=== PATIENT | female | born 1935 | race Caucasian/White ===

== ENCOUNTER 2020-10-10 11:23 | Inpatient (IN) | payer MEDICARE ==
[~2020-10-10] VITALS: Ht 162.6 cm; Wt 43.5 kg
[2020-10-10] MEDS ORDERED: FURO-152 PO (11:54)
[2020-10-10] MEDS ORDERED: BUSP5TAB3 PO (11:54)
[2020-10-10] MEDS ORDERED: TRAV5DRO LEFTEYE (11:54)
[2020-10-10] MEDS ORDERED: PREG50CA PO (11:54)
[2020-10-10] MEDS ORDERED: [UNRECOGNIZED DRUG - OTHER] (11:54)
[2020-10-10] MEDS ORDERED: BIOT5000 PO (11:54)
[2020-10-10] MEDS ORDERED: SOLI5TAB2 PO (11:54)
[2020-10-10] MEDS ORDERED: PRAV20TA4 PO (11:54)
[2020-10-10] MEDS ORDERED: OMEP40CA13 PO (11:54)
[2020-10-10] MEDS ORDERED: ASPI81TA31 PO (11:54)
[2020-10-10] MEDS ORDERED: TURM1CAP2 PO (11:54)
[2020-10-10] MEDS ORDERED: MAG355OR18 PO (11:54)
[2020-10-10] MEDS ORDERED: SERT50TA PO (11:54)
[2020-10-10] MEDS ORDERED: CYAN200017 PO (11:54)
[2020-10-10] MEDS ORDERED: BETA1TAB19 PO (11:54)
[2020-10-10] MEDS ORDERED: SIME125C PO (11:54)
[2020-10-10] MEDS ORDERED: TYLENOL PM (11:54)
[2020-10-10] MEDS ORDERED: SLOW-MAG (11:54)
[2020-10-10] MEDS ORDERED: CHOL10005 PO (11:54)
[2020-10-10] MEDS ORDERED: L. R1CAP4 PO (11:54)
[2020-10-10 12:12] LABS: HEMATOCRIT 30.4 % (31.2-41.9); HEMOGLOBIN 10.4 g/dL (10.9-14.3); LYMPHOCYTES # (AUTO) 0.3 K/uL (20.0-40.0); LYMPHOCYTES % (AUTO) 18.7 % (20.5-51.5); MEAN CORPUSCULAR HGB CONC 34 g/dL (32.3-35.6); MEAN CORPUSCULAR VOLUME 108.6 fL (75.5-95.3); MONOCYTES # (AUTO) 0.1 K/uL (2.0-10.0); NEUTROPHILS % (AUTO) 70.3 % (38.5-71.5); PLATELET COUNT (AUTO) 51 K/uL (179-408)
--- NOTE | 2020-10-10 12:13 | NUR ---
lunch provdied for pt. pt son at bedside.
[2020-10-10 12:31] LABS: ACETAMINOPHEN < 2.0 ug/mL (10-30); ALANINE AMINOTRANSFERASE 30 U/L (14-59); ALKALINE PHOSPHATASE 74 U/L (50-136); ASPARTATE AMINOTRANSFERASE 29 U/L (15-37); BILIRUBIN,DIRECT 0.2 mg/dL (0.0-0.2); BILIRUBIN,TOTAL 0.5 mg/dL (0.2-1.0); CARBON DIOXIDE 29 mmol/L (21-32); CHLORIDE 108 mmol/L (98-107); CREATININE 0.8 mg/dL (0.6-1.3); GLUCOSE 112 mg/dL (74-106); POTASSIUM 3.2 mmol/L (3.5-5.1); TOTAL PROTEIN, SERUM 6.7 g/dL (6.4-8.2); UREA NITROGEN, BLOOD 20 mg/dL (7-18)
[2020-10-10 12:52] LABS: ETHANOL < 3 MG/DL (0-0)
[2020-10-10 12:54] LABS: WHITE BLOOD COUNT (AUTO) 1.4 K/uL (3.8-11.8)
[2020-10-10] MEDS ORDERED: POTASSIUM CHLORIDE 20 MEQ TAB.PRT.SR PO ONE (13:00)
--- NOTE | 2020-10-10 13:00 | NUR ---
pt medically cleared by er .called Tremaine Salvador for psych eval.
[2020-10-10] MEDS ORDERED: POTASSIUM CHLORIDE 20 MEQ TAB.PRT.SR ONE (13:10)
[2020-10-10 13:48] LABS: *BILIRUBIN,URIN NEGATIVE (NEGATIVE); *CLARITY,URINE CLEAR (CLEAR); *COLOR,URINE YELLOW (YELLOW); *KETONES,URINE NEGATIVE (NEGATIVE); LEUKOCYTE ESTERASE ,URINE NEGATIVE (NEGATIVE); NITRITE, URINE NEGATIVE (NEGATIVE); PH,URINE 6.5 (5.0-8.0); UGLUCOSE NEGATIVE (NEGATIVE)
[2020-10-10 13:57] LABS: *BLOOD, URINE TRACE (NEGATIVE)
[2020-10-10 14:02] LABS: *AMPHETAMINE, URINE NEGATIVE (NEGATIVE); *CANNABINOID, URINE NEGATIVE (NEGATIVE); *COCCAINE, URINE NEGATIVE (NEGATIVE); *OPIATE, URINE NEGATIVE (NEGATIVE); *PHENCYCLIDINE SCREEN,URINE NEGATIVE (NEGATIVE)
[2020-10-10] MEDS ORDERED: MAGNESIUM HYDROXIDE 30 ML LIQUID UDC PO PRN ×2 (14:45→23:45)
[2020-10-10] MEDS ORDERED: MAG HYDROX/AL HYDROX/SIMETH 30 ML LIQUID UDC PO PRN (14:45)
[2020-10-10] MEDS ORDERED: ACETAMINOPHEN 325 MG TABLET PO PRN ×2 (14:45→21:30)
[2020-10-10] MEDS ORDERED: LORAZEPAM 0.5 MG TABLET PO PRN ×2 (14:45→15:45)
[2020-10-10] MEDS ORDERED: TEMAZEPAM 7.5 MG CAPSULE PO PRN (14:45)
--- NOTE | 2020-10-10 14:50 | NUR ---
trnasfered pt to mhu in stable condition.
[2020-10-10 15:00] VITALS: BP 147/75
--- NOTE | 2020-10-10 17:20 | NUR ---
Clinical Social Work Note Pt was sent by ED to MHU but patient has WBC of 1.4 and infiltrate and so patient will be admitted to telemetry unit under Dr Zhou's care. Patient is not on a 5150. Tremaine Newsome [employer] SUPERINTENDENT rescinded his 5150 as patient's behavior could well be attributed to her medical condition. Patient presents as anxious and repeats herself due to her anxiety and probable cognitive deficit. This is within his purview. Dr Mancera will consult and follow this patient on the medical floor and is aware of her admission to telemetry. If patient stabilizes medically, she can be evaluated for MHU admission but not at this time. Her mental status could well be impacted by her medical condition. Jennifer WASHBURN notified family of her transfer. Dx: Pneumonia. NO 5150 and no sitter.
[2020-10-10 19:13] LABS: BACTERIA,URINE NONE SEEN /HPF (NONE SEEN); MUCUS,URINE FEW /LPF (0-FEW); SQUAMOUS EPITHELIAL CELL,UR FEW /HPF (NONE SEEN); WBC,URINE 0-3 /HPF (0-3)
[2020-10-10] MEDS: CEFTRIAXONE 1 G in IV DEXTROSE 5% 50 ML IV SCH (20:28)
[2020-10-10 21:23] VITALS: BP 141/73
[2020-10-10] MEDS ORDERED: ONDANSETRON 4 MG/2 ML VIAL IV PRN (21:30)
[2020-10-10] MEDS: AZITHROMYCIN IV 500 MG in IV DEXTROSE 5% 250 ML IV SCH (22:12)
[2020-10-10] MEDS: MAG HYDROX/AL HYDROX/SIMETH 30 ML LIQUID UDC PO PRN (23:07)
[2020-10-10 23:58] VITALS: BP_SYST 131; BP_SYST 149; BP_DIAS 78
[2020-10-11] MEDS: TEMAZEPAM 7.5 MG CAPSULE PO PRN (00:07)
[2020-10-11 00:13] LABS: EOSINOPHILS % (MANUAL) 3 % (0-8); LYMPHOCYTES % (MANUAL) 19 % (20-40); MONOCYTES % (MANUAL) 7 % (2-10); NEUTROPHILS % (MANUAL) 71 % (42-75)
[2020-10-11 05:19] VITALS: BP 114/63
[2020-10-11] MEDS: PANTOPRAZOLE SODIUM 40 MG TABLET.DR PO SCH (06:16)
[2020-10-11 06:39] LABS: THYROID STIMULATING HORMONE 1.506 mIU/mL (0.358-3.740)
[2020-10-11 06:42] LABS: BILIRUBIN,TOTAL 0.4 mg/dL (0.2-1.0); CREATININE 0.7 mg/dL (0.6-1.3); POTASSIUM 3.3 mmol/L (3.5-5.1); TOTAL PROTEIN, SERUM 6.2 g/dL (6.4-8.2)
[2020-10-11 06:59] LABS: PHOSPHOROUS 2.6 mg/dL (2.5-4.9)
[2020-10-11 07:57] VITALS: BP 133/55
[2020-10-11] MEDS: MAG HYDROX/AL HYDROX/SIMETH 30 ML LIQUID UDC PO PRN ×2 (08:38→14:12)
[2020-10-11] MEDS: ASPIRIN 81 MG TAB.CHEW PO SCH (08:40)
[2020-10-11] MEDS: OXYBUTYNIN CHLORIDE 5 MG TABLET PO SCH ×2 (08:42→17:50)
[2020-10-11] MEDS: BETA CAROTENE/VIT C & E/MIN TABLET PO SCH ×2 (08:42→17:50)
[2020-10-11] MEDS: FUROSEMIDE 20 MG TABLET PO SCH (08:45)
[2020-10-11] MEDS ORDERED: SOLIFENACIN SUCCINATE 5 MG TABEC PO SCH (09:00)
[2020-10-11] MEDS ORDERED: POTASSIUM CHLORIDE 20 MEQ TAB.PRT.SR PO SCH ×2 (09:15→13:45)
[2020-10-11 11:29] VITALS: BP 135/69
[2020-10-11] MEDS ORDERED: IV NORMAL SALINE 250 ML IV ONE (12:18)
[2020-10-11] MEDS ORDERED: IOHEXOL 300MG/ML 100 ML INFUS..BTL ONE (12:18)
[2020-10-11] MEDS ORDERED: SWABABLE VALVE TRANSFER SET EA MC ONE (12:18)
[2020-10-11] MEDS: SERTRALINE HCL 50 MG TABLET PO SCH (13:59)
[2020-10-11 15:13] VITALS: BP 160/68
[2020-10-11] MEDS ORDERED: BISACODYL 10 MG SUPP.RECT RC PRN (16:15)
--- NOTE | 2020-10-11 17:02 | NUR ---
Pt AAOx4, anxious and forgetful at times. Denies pain/discomfort. VSS. SR on monitor. RA, no SOB w/ spo2 >92%. Ambulatory and steady. Continent x2, BRP. Complained of indigestion, Maalox PRN adminstered x2 w/ good relief. Dulcolax suppository PRN ordered for constipation. All needs attended to. Plan: AM labs, IV abx, hemat consult
[2020-10-11] MEDS: CEFTRIAXONE 1 G in IV DEXTROSE 5% 50 ML IV SCH (17:50)
[2020-10-11 20:00] VITALS: BP 150/74
[2020-10-11] MEDS: PREGABALIN 50 MG CAPSULE PO SCH (20:51)
[2020-10-11] MEDS: AZITHROMYCIN IV 500 MG in IV DEXTROSE 5% 250 ML IV SCH (20:51)
[2020-10-11] MEDS: MIRTAZAPINE 15 MG TABLET PO SCH (20:52)
[2020-10-11] MEDS: ATORVASTATIN 10 MG TABLET PO SCH (20:52)
[2020-10-11] MEDS: LORAZEPAM 0.5 MG TABLET PO PRN (20:52)
[2020-10-12] VITALS: BP 136/100
[2020-10-12] MEDS: TEMAZEPAM 7.5 MG CAPSULE PO PRN (00:03)
[2020-10-12 04:00] VITALS: BP 136/76
[2020-10-12 07:59] LABS: CREATININE 0.7 mg/dL (0.6-1.3); POTASSIUM 3.7 mmol/L (3.5-5.1)
[2020-10-12 08:07] VITALS: BP 147/80
[2020-10-12] MEDS: BETA CAROTENE/VIT C & E/MIN TABLET PO SCH ×2 (08:50→16:48)
[2020-10-12] MEDS: ASPIRIN 81 MG TAB.CHEW PO SCH (08:50)
[2020-10-12] MEDS: OXYBUTYNIN CHLORIDE 5 MG TABLET PO SCH ×2 (08:51→16:48)
[2020-10-12] MEDS: FUROSEMIDE 20 MG TABLET PO SCH (08:51)
[2020-10-12] MEDS: PANTOPRAZOLE SODIUM 40 MG TABLET.DR PO SCH (08:53)
--- NOTE | 2020-10-12 09:07 | NUR ---
PATIENT IS FROM THE [facility] SO CALLED THE MRI LEFT A MESSAGE SINCE PATIENT IS SUPPOSED TO BE NPO NEEDED TO COORDINATE TIMING OF THE MRI SO TO KNOW WHEN HER NPO STATUS WILL BEGIN.PATIENT AWARE THAT SHE WILL EAT BREAKFAST FOR NOW BUT MOST LIKELY WILL HAVE EARLY LUNCH WHILE AWAITING FOR THE MRI SCHEDULE AND SHE EXPRESSED UNDERSTANDING.
[2020-10-12 09:42] LABS: *RHEUMATOID FACTOR SCREEN NEGATIVE (NEGATIVE)
--- NOTE | 2020-10-12 11:30 | NUR ---
CALL RECEIVED FROM BENJA AT THE MRI STATED WILL BE ABLE TO ACCOMODATE PATIENT AT ABOUT 1700 JUST HAVE THE PATIENT GET TO [facility] BY 1700 TODAY AND PATIENT HAS TO BE NPO ABOUT 4 HOURS SO KITCHEN CALL AND PATIENT WILL RECEIVE EARLY LUNCH WILL FINISH EATING BY 1230 AND WILL BE PICKED UP BY 1630 PATIENT AWARE ALSO HIS SON MARIANNE AWARE OF PLANS FOR MRI THIS AFTERNOON STATED WILL APPRECIATED A CALL FROM DR JAIMES WILL NOTIFY HIM.SHE ALSO FILLED UP THE MRI QUESTIONARE AND SIGNED.
[2020-10-12] MEDS: SERTRALINE HCL 50 MG TABLET PO SCH (12:34)
[2020-10-12 15:54] VITALS: BP 161/77
--- NOTE | 2020-10-12 16:54 | NUR ---
AMBULANCE HERE PATIENT PICKED UP FOR MRI ORDERED.
--- NOTE | 2020-10-12 18:33 | NUR ---
PATIENT RETURNED FROM THE MRI ORDERED IN SATISFACTORY CONDITION.
[2020-10-12 20:00] VITALS: BP 153/79
--- NOTE | 2020-10-12 20:00 | NUR ---
AWAKE,ALERT ANXIOUS,REPEATING HERSELF ABOUT GOING TO SLEEP.UP TO THE BATHROOM SEVERAL TIMES ,BRUSH HER TEETH,VOIDED CLEAN HER FACE ETC. AT 2200 NITE PILLS GIVEN MADE COMFORTABLY.COMPLAINT OF INDIGESTION MAALOX GIVEN.
[2020-10-12] MEDS: CEFTRIAXONE 1 G in IV DEXTROSE 5% 50 ML IV SCH (20:03)
[2020-10-12] MEDS: AZITHROMYCIN IV 500 MG in IV DEXTROSE 5% 250 ML IV SCH (20:54)
[2020-10-12] MEDS: PREGABALIN 50 MG CAPSULE PO SCH (21:50)
[2020-10-12] MEDS: MIRTAZAPINE 15 MG TABLET PO SCH (21:50)
[2020-10-12] MEDS: ATORVASTATIN 10 MG TABLET PO SCH (21:50)
[2020-10-12] MEDS: MAG HYDROX/AL HYDROX/SIMETH 30 ML LIQUID UDC PO PRN (22:52)
[2020-10-13] VITALS: BP 138/74
[2020-10-13] MEDS: TEMAZEPAM 7.5 MG CAPSULE PO PRN (01:03)
[2020-10-13 04:00] VITALS: BP 142/75
[2020-10-13] MEDS: PANTOPRAZOLE SODIUM 40 MG TABLET.DR PO SCH (06:04)
--- NOTE | 2020-10-13 06:12 | NUR ---
SLEPT AT LONG INTERVALS.
[2020-10-13 07:38] LABS: BILIRUBIN,TOTAL 0.4 mg/dL (0.2-1.0); CREATININE 0.7 mg/dL (0.6-1.3); MAGNESIUM 2.2 mg/dL (1.8-2.4); PHOSPHOROUS 3.1 mg/dL (2.5-4.9); POTASSIUM 3.6 mmol/L (3.5-5.1); TOTAL PROTEIN, SERUM 5.9 g/dL (6.4-8.2)
--- NOTE | 2020-10-13 08:00 | NUR ---
RECEIVED PATIENT IN ROOM AWAKE ALERT AND ORIENTED DENIES PAIN OR DISCOMFORTS AT THIS TIME TELE IS SR CALL LIGHTS AND HER PERSONAL BELONGINGS ARE WITHIN EASY REACH AT THIS TIME WILL CONTINUE TO OBSERVE
[2020-10-13] MEDS: ASPIRIN 81 MG TAB.CHEW PO SCH (08:08)
[2020-10-13] MEDS: OXYBUTYNIN CHLORIDE 5 MG TABLET PO SCH ×2 (08:08→16:00)
[2020-10-13] MEDS: FUROSEMIDE 20 MG TABLET PO SCH (08:08)
[2020-10-13] MEDS: BETA CAROTENE/VIT C & E/MIN TABLET PO SCH ×2 (08:08→16:00)
[2020-10-13 08:25] LABS: BASOPHILS % (AUTO) 0.7 % (0.0-2.0); EOSINOPHILS # (AUTO) 0.1 K/uL (0.0-0.7); EOSINOPHILS % (AUTO) 6.9 % (0.0-7.0); HEMATOCRIT 26.9 % (31.2-41.9); HEMOGLOBIN 9.4 g/dL (10.9-14.3); LYMPHOCYTES # (AUTO) 0.3 K/uL (20.0-40.0); LYMPHOCYTES % (AUTO) 30.3 % (20.5-51.5); MEAN CORPUSCULAR HEMOGLOBIN 37.4 uug (24.7-32.8); MEAN CORPUSCULAR HGB CONC 35 g/dL (32.3-35.6); MEAN CORPUSCULAR VOLUME 107.3 fL (75.5-95.3); MONOCYTES # (AUTO) 0.1 K/uL (2.0-10.0); MONOCYTES % (AUTO) 14.4 % (0.0-11.0); NEUTROPHILS # (AUTO) 0.5 K/uL (1.8-8.9); NEUTROPHILS % (AUTO) 47.7 % (38.5-71.5); RED BLOOD CELL COUNT(AUTO) 2.51 MIL/uL (3.63-4.92)
--- NOTE | 2020-10-13 08:45 | NUR ---
WBC IS 1.0 PER LAB PATIENT PLACED ON REVERSE ISOLATION AT THIS TIME.
[2020-10-13 10:06] LABS: *IMMUNOGLOBULIN G, SERUM 1434 mg/dL (586-1602); IMMUNOGLOBULIN A, SERUM 41 mg/dL (64-422); IMMUNOGLOBULIN M, SERUM 56 mg/dL (26-217)
[2020-10-13 11:51] VITALS: BP 141/76
[2020-10-13] MEDS: SERTRALINE HCL 50 MG TABLET PO SCH (12:04)
[2020-10-13 16:16] VITALS: BP 138/70
--- NOTE | 2020-10-13 17:30 | NUR ---
C/O EPIGASTRIC PAIN MEDICATED WITH MYLANTA ORDERED SHE IS EATING HER DINNER AT THIS TIME MADE COMFORTABLE CONTINUE ON REVERSE ISOLATION PATIENT SEEN AND EXAMINED BY DR JAIMES WITH NO NEW ORDERS AT THIS TIME WILL CONTINUE TO OBSERVE
[2020-10-13] MEDS: MAG HYDROX/AL HYDROX/SIMETH 30 ML LIQUID UDC PO PRN (17:36)
[2020-10-13] MEDS: CEFTRIAXONE 1 G in IV DEXTROSE 5% 50 ML IV SCH (19:40)
[2020-10-13 19:57] LABS: PLATELET COUNT (AUTO) 46 K/uL (179-408)
[2020-10-13 19:58] LABS: BAND % (MANUAL) 4 % (0-10); LYMPHOCYTES % (MANUAL) 36 % (20-40); MONOCYTES % (MANUAL) 2 % (2-10); NEUTROPHILS % (MANUAL) 58 % (42-75)
[2020-10-13 20:00] VITALS: BP 138/69
--- NOTE | 2020-10-13 20:00 | NUR ---
AWAKE,ALERT ANXIOUS, COMPLAINING OF SORE THROAT, DR DICK AWARE OF IT PER DAY NURSE.CEPHACOL ORDERED. DID NOT ASKED FOR MEDICATION FOR SORE THROAT,NO FURTHER COMPLAINTS MADE ,WANTED TO SLEEP ATIVAN 1 MG GIVEN. SLEPT AFTERWARDS,
[2020-10-13] MEDS: AZITHROMYCIN IV 500 MG in IV DEXTROSE 5% 250 ML IV SCH (20:33)
[2020-10-13] MEDS: ATORVASTATIN 10 MG TABLET PO SCH (21:42)
[2020-10-13] MEDS: MIRTAZAPINE 15 MG TABLET PO SCH (21:42)
[2020-10-13] MEDS: PREGABALIN 50 MG CAPSULE PO SCH (21:42)
[2020-10-13] MEDS ORDERED: BENZOCAINE/MENTH/CETYLPYRD LOZENGE MM PRN (21:45)
[2020-10-13] MEDS: LORAZEPAM 0.5 MG TABLET PO PRN (23:55)
[2020-10-14] VITALS: BP 153/69
[2020-10-14 04:00] VITALS: BP 137/70
[2020-10-14] MEDS: BETA CAROTENE/VIT C & E/MIN TABLET PO SCH ×2 (08:36→16:48)
[2020-10-14] MEDS: PANTOPRAZOLE SODIUM 40 MG TABLET.DR PO SCH (08:36)
[2020-10-14] MEDS: OXYBUTYNIN CHLORIDE 5 MG TABLET PO SCH ×2 (08:36→16:48)
[2020-10-14] MEDS: FUROSEMIDE 20 MG TABLET PO SCH (08:36)
[2020-10-14] MEDS ORDERED: ASPIRIN 81 MG TAB.CHEW PO SCH (09:00)
--- NOTE | 2020-10-14 09:15 | NUR ---
CALL RECEIVED FROM DR SISSY JIMENEZ STATED THAT HE HAD A MISSED CALL NOTIFIED HIM THAT DR MEDINA THE ONCOLOGIST WANTED SOME NOTED FROM PATIENTS PREVIOUS VISITS TO HIS OFFICE GAVE HIM THE FAX NUMBER HERE AT [facility] STATED WILL FAX THEM OVER SOON HE CAN.
[2020-10-14 10:02] LABS: CREATININE 0.9 mg/dL (0.6-1.3); POTASSIUM 3.8 mmol/L (3.5-5.1)
[2020-10-14 10:08] LABS: EOSINOPHILS # (AUTO) 0.1 K/uL (0.0-0.7); HEMATOCRIT 32.9 % (31.2-41.9); LYMPHOCYTES # (AUTO) 0.3 K/uL (20.0-40.0); NEUTROPHILS # (AUTO) 0.4 K/uL (1.8-8.9)
[2020-10-14 10:10] LABS: BASOPHILS % (AUTO) 1.2 % (0.0-2.0); EOSINOPHILS % (AUTO) 5.8 % (0.0-7.0); HEMOGLOBIN 11.3 g/dL (10.9-14.3); LYMPHOCYTES % (AUTO) 34.7 % (20.5-51.5); MEAN CORPUSCULAR HGB CONC 34 g/dL (32.3-35.6); MEAN CORPUSCULAR VOLUME 107.8 fL (75.5-95.3); MONOCYTES # (AUTO) 0.2 K/uL (2.0-10.0); MONOCYTES % (AUTO) 16.5 % (0.0-11.0); NEUTROPHILS % (AUTO) 41.8 % (38.5-71.5); PLATELET COUNT (AUTO) 54 K/uL (179-408); RED BLOOD CELL COUNT(AUTO) 3.05 MIL/uL (3.63-4.92)
[2020-10-14 10:23] LABS: WHITE BLOOD COUNT (AUTO) 0.9 K/uL (3.8-11.8)
--- NOTE | 2020-10-14 10:24 | NUR ---
CALL RECEIVED FROM THE LAB WBC IS 0.[address] JAIMES WITH NO NEW ORDERS AT THIS TIME PATIENT REMAINS ON REVERSE ISOLATION ORDERED WILL CONTINUE TO OBSERVE.
[2020-10-14 12:00] VITALS: BP 129/60
[2020-10-14] MEDS: SERTRALINE HCL 50 MG TABLET PO SCH (12:15)
--- NOTE | 2020-10-14 12:33 | NUR ---
CALL RECEIVED FROM DR BEJARANO WANTS TO TALK TO THE PATIENT BUT PATIENT IS CURRENTLY EATING STATED OKAY TO CALL HER BACK IN 15 MINUTES SO THAT SHE COULD DECIDE IF PATIENT COULD BE MOVED TO MENTAL HEALTH UNIT TODAY .
--- NOTE | 2020-10-14 13:31 | NUR ---
Clinical Social Work/ Crisis Team Note Met with patient this 85 year old female who is alert and oriented x3. Patient's mood is calm and she is far less anxious than when this typewriter ribbon winder saw her just prior to admission after being seen in ED. Patient is not suicidal or homicidal and has an accepting facility. She will return to her assisted living. She is not meeting criteria for a 5150 as her facility will take her back today. Discussed case was discussed with Dr Mancera and she was notified that patient is not meeting [address] Zhou was notified of this as well. Oly, transplant case manager, is aware of this plan. Patient continues to have medical issues and so discharge by Dr Zhou is currently on hold. Plan: Case management will coordinate discharge back to assisted living when patient is medically stable.
--- NOTE | 2020-10-14 14:36 | NUR ---
CALL RECEIVED FROM JEREL LIVESTOCK FARMER AND REQUESTED FOR PHYSICAL THERAPY EVAL DR DICK AWARE WITH ORDERS AND NOTED.
[2020-10-14 16:00] VITALS: BP 141/71
[2020-10-14] MEDS ORDERED: ENSURE ENLIVE (VAN) 240 ML LIQUID PO SCH (17:00)
[2020-10-14] MEDS ORDERED: BISA10SU12 RC (17:22)
[2020-10-14] MEDS ORDERED: SERT50TA12 PO (17:22)
[2020-10-14] MEDS ORDERED: Benzocaine/Menth/Cetylpyrd Cl MM (17:22)
[2020-10-14] MEDS ORDERED: TEMA7.5C PO (17:22)
[2020-10-14] MEDS ORDERED: Lactose-Free Food PO (17:22)
[2020-10-14] MEDS ORDERED: ACET325T53 PO (17:22)
[2020-10-14] MEDS ORDERED: MAG30ORA PO (17:22)
[2020-10-14] MEDS ORDERED: MIRT15TA7 PO (17:22)
[2020-10-14] MEDS ORDERED: PANT40TA2 PO (17:22)
[2020-10-14] MEDS ORDERED: MAGN400O6 PO (17:22)
[2020-10-14] MEDS ORDERED: LORA0.5T48 PO (17:22)
--- NOTE | 2020-10-14 17:55 | NUR ---
DR GHOSH MANAGER FILE HERE AND SEEN PATIENT AND STATED THAT DR MEDINA WILL CALL PATIENTS SON AND TALK TO HIM ABOUT DOING A BONE BIOPSY.SPECIMEN SENT TO THE LAB FOR SCOTT VIRUS PCR ORDERED
--- NOTE | 2020-10-14 18:27 | NUR ---
SPOKE WITH LOIDA TODDLER TEACHER RE DISCHARGE ORDER STATED THAT PATIENT WILL BE DISCHARGED TO ARU AFTER THE PCR RESULT AND PHYSICAL THERAPY EVAL AND NOTED.
--- NOTE | 2020-10-14 19:30 | NUR ---
Pt received awake in bed. Denies any pain or SOB at this time. Safety and comfort provided. Will continue to monitor.
[2020-10-14 20:55] VITALS: BP 154/64
[2020-10-14] MEDS: ATORVASTATIN 10 MG TABLET PO SCH (21:12)
[2020-10-14] MEDS: PREGABALIN 50 MG CAPSULE PO SCH (21:12)
[2020-10-14] MEDS: MIRTAZAPINE 15 MG TABLET PO SCH (21:12)
[2020-10-14] MEDS: TEMAZEPAM 7.5 MG CAPSULE PO PRN (23:08)
[2020-10-14 23:56] LABS: EOSINOPHILS % (MANUAL) 5 % (0-8); LYMPHOCYTES % (MANUAL) 38 % (20-40); MONOCYTES % (MANUAL) 17 % (2-10); NEUTROPHILS % (MANUAL) 40 % (42-75)
--- NOTE | 2020-10-15 00:10 | NUR ---
Pt is being discharged from [facility] to ARU. Pt is stable at this time
--- NOTE | 2020-10-15 14:00 | NUR ---
Patient had mistaken discharge to ARU as per director. Resumed as medsurge patient. She remains alert, oriented x 3 , not in any form of distress, on room air, ambulatory. She denies any pain or discomfort at this time. Assisted with her needs. Call light and frequently used items placed within patient's reach. Dr. Jay made aware of WBC result of 0.9 with no order. Maintained patient on reverse isolation.
[2020-10-15] MEDS ORDERED: MAG HYDROX/AL HYDROX/SIMETH 30 ML LIQUID UDC PO PRN (15:30)
[2020-10-15] MEDS ORDERED: SERTRALINE HCL 50 MG TABLET PO ONE (16:00)
[2020-10-15] MEDS ORDERED: BISACODYL 10 MG SUPP.RECT RC PRN (16:30)
[2020-10-15] MEDS ORDERED: LORAZEPAM 0.5 MG TABLET PO PRN (16:30)
[2020-10-15] MEDS ORDERED: MAGNESIUM HYDROXIDE 30 ML LIQUID UDC PO PRN (16:30)
[2020-10-15] MEDS ORDERED: TEMAZEPAM 7.5 MG CAPSULE PO PRN (16:30)
[2020-10-15] MEDS ORDERED: ACETAMINOPHEN 325 MG TABLET PO PRN (16:30)
[2020-10-15] MEDS: ENSURE ENLIVE (VAN) 240 ML LIQUID PO SCH (17:36)
[2020-10-15 18:43] LABS: BASOPHILS % (AUTO) 0.8 % (0.0-2.0); EOSINOPHILS % (AUTO) 2.8 % (0.0-7.0); HEMATOCRIT 31.2 % (31.2-41.9); HEMOGLOBIN 10.4 g/dL (10.9-14.3); LYMPHOCYTES # (AUTO) 0.3 K/uL (20.0-40.0); MEAN CORPUSCULAR HEMOGLOBIN 35.8 uug (24.7-32.8); MEAN CORPUSCULAR HGB CONC 33 g/dL (32.3-35.6); MEAN CORPUSCULAR VOLUME 107.2 fL (75.5-95.3); MONOCYTES # (AUTO) 0.1 K/uL (2.0-10.0); MONOCYTES % (AUTO) 8.5 % (0.0-11.0); NEUTROPHILS # (AUTO) 0.7 K/uL (1.8-8.9); NEUTROPHILS % (AUTO) 60.9 % (38.5-71.5); PLATELET COUNT (AUTO) 52 K/uL (179-408); RED BLOOD CELL COUNT(AUTO) 2.91 MIL/uL (3.63-4.92)
[2020-10-15 18:47] LABS: WHITE BLOOD COUNT (AUTO) 1.1 K/uL (3.8-11.8)
--- NOTE | 2020-10-15 19:48 | NUR ---
Informed Dr. Jay regarding WBC of 1.1 with no new order.
[2020-10-15] MEDS ORDERED: MIRTAZAPINE 15 MG TABLET PO SCH (21:00)
[2020-10-16 00:39] LABS: EOSINOPHILS % (MANUAL) 2 % (0-8); LYMPHOCYTES % (MANUAL) 80 % (20-40); MONOCYTES % (MANUAL) 8 % (2-10); NEUTROPHILS % (MANUAL) 70 % (42-75)
--- NOTE | 2020-10-16 04:28 | NUR ---
Transferred patient to Room 304 with all the belongings per protocol via bed.
[2020-10-16 04:36] VITALS: BP 134/70
[2020-10-16] MEDS: PANTOPRAZOLE SODIUM 40 MG TABLET.DR PO SCH (05:49)
--- NOTE | 2020-10-16 07:30 | NUR ---
Received patient resting in bed awake alert and oriented times 4. No sign of distress noted at this time. Patient is in isolation for Covid 19. Safety precautions are in place with call lights and belongings within reach. Will continue to monitor.
[2020-10-16] MEDS: ENSURE ENLIVE (VAN) 240 ML LIQUID PO SCH ×2 (08:05→17:26)
[2020-10-16 09:20] LABS: BASOPHILS % (AUTO) 0.8 % (0.0-2.0); HEMOGLOBIN 9.1 g/dL (10.9-14.3); LYMPHOCYTES # (AUTO) 0.2 K/uL (20.0-40.0); MONOCYTES # (AUTO) 0.1 K/uL (2.0-10.0); NEUTROPHILS # (AUTO) 0.6 K/uL (1.8-8.9)
[2020-10-16 09:22] LABS: CREATININE 0.8 mg/dL (0.6-1.3); EOSINOPHILS % (AUTO) 3.9 % (0.0-7.0); HEMATOCRIT 26.5 % (31.2-41.9); LYMPHOCYTES % (AUTO) 22.8 % (20.5-51.5); MEAN CORPUSCULAR HEMOGLOBIN 36.8 uug (24.7-32.8); MEAN CORPUSCULAR HGB CONC 34 g/dL (32.3-35.6); MEAN CORPUSCULAR VOLUME 107.4 fL (75.5-95.3); MONOCYTES % (AUTO) 11.6 % (0.0-11.0); NEUTROPHILS % (AUTO) 60.9 % (38.5-71.5); PHOSPHOROUS 3.7 mg/dL (2.5-4.9); POTASSIUM 3.1 mmol/L (3.5-5.1)
[2020-10-16] MEDS ORDERED: POTASSIUM CHLORIDE 20 MEQ TAB.PRT.SR PO ONE (10:00)
[2020-10-16] MEDS: MAG HYDROX/AL HYDROX/SIMETH 30 ML LIQUID UDC PO PRN ×2 (10:19→21:06)
[2020-10-16] MEDS: GABAPENTIN 100 MG CAPSULE PO SCH ×3 (10:19→17:35)
[2020-10-16 12:00] VITALS: BP 119/63
[2020-10-16] MEDS ORDERED: BENZOCAINE/MENTH/CETYLPYRD LOZENGE MM PRN (12:15)
[2020-10-16] MEDS ORDERED: PHENOL/SODIUM PHENOLATE SPRAY 177 ML BOTTLE MM PRN (12:15)
[2020-10-16] MEDS: SERTRALINE HCL 50 MG TABLET PO SCH (14:03)
[2020-10-16 14:25] LABS: RED BLOOD CELL COUNT(AUTO) 2.47 MIL/uL (3.63-4.92); WHITE BLOOD COUNT (AUTO) 0.9 K/uL (3.8-11.8)
[2020-10-16 15:15] LABS: PLATELET COUNT (AUTO) 47 K/uL (179-408)
[2020-10-16 15:17] LABS: BAND % (MANUAL) 2 % (0-10); LYMPHOCYTES % (MANUAL) 25 % (20-40); NEUTROPHILS % (MANUAL) 60 % (42-75)
[2020-10-16 15:18] LABS: EOSINOPHILS % (MANUAL) 3 % (0-8); MONOCYTES % (MANUAL) 10 % (2-10)
[2020-10-16 16:00] VITALS: BP 119/62
--- NOTE | 2020-10-16 19:30 | NUR ---
RECEIVED PT IN NO ACUTE DISTRESS.IV INTACT. PT ON ROOM AIR. SAFETY AND COMFORT PROVIDED. WILL CONTINUE TO MONITOR.
--- NOTE | 2020-10-16 19:31 | NUR ---
Patient is resting in bed. No sign of distress noted. Gave all medications as ordered. Safety measures are in place with call light and belongings within reach. Patient is still on reverse isolation precautions. Will endorse to the oncoming nurse.
[2020-10-16 20:00] VITALS: BP 119/65
[2020-10-16] MEDS ORDERED: QUETIAPINE FUMARATE 25 MG TABLET PO SCH (21:00)
[2020-10-16] MEDS: MEMANTINE HCL 5 MG TABLET PO SCH (21:06)
[2020-10-16] MEDS: LATANOPROST OPHT DROP 2.5 ML BOTTLE LEFTEYE SCH (21:07)
[2020-10-17 04:00] VITALS: BP 133/66
[2020-10-17] MEDS: PANTOPRAZOLE SODIUM 40 MG TABLET.DR PO SCH (06:06)
--- NOTE | 2020-10-17 06:56 | NUR ---
PT SLEPT INTERMITTENTLY. PT IV INTACT. PT ON ROOM AIR. PRESCRIBED MEDICATION GIVEN AND PT TOLERATED IT WELL. PT GIVEN MAALOX AT 2106H PRN PER PT REQUEST FOR STOMACH UPSET. PT TOLERATED IT WELL. 0035H RESTORIL PRN GIVEN PER PT REQUEST. PT HAVE EPISODES OF FORGETFULNESS NEED TO REORIENT PT. SAFETY AND COMFORT PROVIDED. ALL NEEDS ARE MET. WILL ENDORSE TO INCOMING NURSE FOR CONTINUITY OF CARE.
[2020-10-17 07:42] LABS: BASOPHILS % (AUTO) 0.7 % (0.0-2.0); EOSINOPHILS % (AUTO) 2.6 % (0.0-7.0); HEMATOCRIT 25.6 % (31.2-41.9); HEMOGLOBIN 8.9 g/dL (10.9-14.3); LYMPHOCYTES # (AUTO) 0.3 K/uL (20.0-40.0); LYMPHOCYTES % (AUTO) 30.7 % (20.5-51.5); MEAN CORPUSCULAR HEMOGLOBIN 37.2 uug (24.7-32.8); MEAN CORPUSCULAR HGB CONC 35 g/dL (32.3-35.6); MONOCYTES # (AUTO) 0.1 K/uL (2.0-10.0); MONOCYTES % (AUTO) 10.8 % (0.0-11.0); NEUTROPHILS # (AUTO) 0.5 K/uL (1.8-8.9); NEUTROPHILS % (AUTO) 55.2 % (38.5-71.5)
[2020-10-17] MEDS: GABAPENTIN 100 MG CAPSULE PO SCH ×3 (08:33→17:25)
[2020-10-17] MEDS: MEMANTINE HCL 5 MG TABLET PO SCH ×2 (08:33→21:19)
[2020-10-17] MEDS: ENSURE ENLIVE (VAN) 240 ML LIQUID PO SCH ×2 (08:34→17:20)
[2020-10-17] MEDS: LORAZEPAM 0.5 MG TABLET PO PRN ×2 (09:00→17:25)
[2020-10-17 09:08] LABS: CREATININE 0.9 mg/dL (0.6-1.3); MAGNESIUM 2.2 mg/dL (1.8-2.4); PHOSPHOROUS 3.3 mg/dL (2.5-4.9); POTASSIUM 3.6 mmol/L (3.5-5.1)
[2020-10-17] MEDS: MAG HYDROX/AL HYDROX/SIMETH 30 ML LIQUID UDC PO PRN (09:16)
[2020-10-17 09:25] LABS: PLATELET COUNT (AUTO) 38 K/uL (179-408); WHITE BLOOD COUNT (AUTO) 0.9 K/uL (3.8-11.8)
[2020-10-17 11:34] VITALS: BP_SYST 122; BP_SYST 138; BP_DIAS 62; BP_DIAS 75
[2020-10-17] MEDS: SERTRALINE HCL 50 MG TABLET PO SCH (13:18)
[2020-10-17 15:40] VITALS: BP 132/53
[2020-10-17] MEDS ORDERED: TBO-FILGRASTIM 300 MCG/0.5 ML SYRINGE SQ SCH (16:30)
[2020-10-17 20:00] VITALS: BP 148/69
--- NOTE | 2020-10-17 20:00 | NUR ---
ALERT X4 COVIDS POSITIVE. IN NO ACUTE DISTRESS , RESTING COMFORTABLY NITE PILLS GIVEN COOPERATIVE.
[2020-10-17] MEDS ORDERED: QUETIAPINE FUMARATE 25 MG TABLET PO SCH (21:00)
[2020-10-17] MEDS: LATANOPROST OPHT DROP 2.5 ML BOTTLE LEFTEYE SCH (21:20)
[2020-10-17 21:56] LABS: EOSINOPHILS % (MANUAL) 4 % (0-8); LYMPHOCYTES % (MANUAL) 34 % (20-40); MONOCYTES % (MANUAL) 10 % (2-10); NEUTROPHILS % (MANUAL) 52 % (42-75)
[2020-10-18 05:19] VITALS: BP 127/76
--- NOTE | 2020-10-18 06:34 | NUR ---
slept most of the nite,covid isolation maintained.
--- NOTE | 2020-10-18 08:53 | NUR ---
Awake, alert, oriented x 4, complaining of stomach discomfort
[2020-10-18] MEDS: GABAPENTIN 100 MG CAPSULE PO SCH ×3 (09:09→18:01)
[2020-10-18] MEDS: MEMANTINE HCL 5 MG TABLET PO SCH (09:09)
[2020-10-18] MEDS: PANTOPRAZOLE SODIUM 40 MG TABLET.DR PO SCH (09:09)
[2020-10-18] MEDS: MAG HYDROX/AL HYDROX/SIMETH 30 ML LIQUID UDC PO PRN (09:09)
[2020-10-18] MEDS: ENSURE ENLIVE (VAN) 240 ML LIQUID PO SCH ×2 (09:10→18:01)
[2020-10-18 10:28] LABS: BASOPHILS % (AUTO) 0.2 % (0.0-2.0); HEMATOCRIT 27.1 % (31.2-41.9); HEMOGLOBIN 9.4 g/dL (10.9-14.3); LYMPHOCYTES # (AUTO) 0.5 K/uL (20.0-40.0); LYMPHOCYTES % (AUTO) 8.9 % (20.5-51.5); MEAN CORPUSCULAR HEMOGLOBIN 37.3 uug (24.7-32.8); MEAN CORPUSCULAR HGB CONC 35 g/dL (32.3-35.6); MEAN CORPUSCULAR VOLUME 106.8 fL (75.5-95.3); MONOCYTES # (AUTO) 0.2 K/uL (2.0-10.0); MONOCYTES % (AUTO) 3.6 % (0.0-11.0); NEUTROPHILS # (AUTO) 4.7 K/uL (1.8-8.9); NEUTROPHILS % (AUTO) 87.3 % (38.5-71.5); RED BLOOD CELL COUNT(AUTO) 2.53 MIL/uL (3.63-4.92); WHITE BLOOD COUNT (AUTO) 5.4 K/uL (3.8-11.8)
[2020-10-18 10:32] LABS: CREATININE 0.8 mg/dL (0.6-1.3); MAGNESIUM 2.2 mg/dL (1.8-2.4); PHOSPHOROUS 2.9 mg/dL (2.5-4.9); POTASSIUM 3.6 mmol/L (3.5-5.1)
[2020-10-18 10:47] LABS: PLATELET COUNT (AUTO) 33 K/uL (179-408)
[2020-10-18 12:00] VITALS: BP 113/56
[2020-10-18] MEDS: SERTRALINE HCL 50 MG TABLET PO SCH (12:42)
[2020-10-18 12:56] LABS: BAND % (MANUAL) 9 % (0-10); LYMPHOCYTES % (MANUAL) 6 % (20-40); MONOCYTES % (MANUAL) 1 % (2-10); NEUTROPHILS % (MANUAL) 84 % (42-75)
[2020-10-18] MEDS ORDERED: CEFEPIME HCL 2 G in IV DEXTROSE 5% 100 ML IV SCH (14:00)
[2020-10-18] MEDS ORDERED: CEFE2FRO IV (15:18)
[2020-10-18] MEDS ORDERED: MEMA10TA PO (15:22)
[2020-10-18] MEDS ORDERED: GABA-532 PO (15:22)
[2020-10-18] MEDS ORDERED: QUET50TA PO (15:22)
[2020-10-18 16:00] VITALS: BP 104/56
--- NOTE | 2020-10-18 19:13 | NUR ---
With discharge order to [facility], report given to Peri. Ambulance cone picker delayed.
--- NOTE | 2020-10-18 20:25 | NUR ---
PATIENT LEFT VIA GURNEY WITH 2 EMT'S. LEFT IN NO ACUTE DISTRESS WITH PAPERWORK AND BELONGINGS.
--- NOTE | 2020-10-18 20:35 | NUR ---
LIU MONTOYA [facility] CALLED TO CONFIRM IF PATIENT IS STILL COMING. NOTIFIED THAT PATIENT JUST LEFT.
[2020-10-18 20:37] VITALS: BP 134/60
== END 2020-10-18 23:15 | DRG 177 ==
LOC: ER 11:23 → UNDOADMIN 14:29 → GPS 14:29 → TELE3 17:01 → EDBD 17:01 → MEDSURG3 10-13 22:58 → UNDODISIN 10-14 17:00 → MEDSURG3 10-16 04:21
PROVIDERS: ADMIT Internal Medicine; ATTEND Nurse Practitioner Acute Care
DX: U07.1 COVID-19 (principal); J12.89 Other viral pneumonia; D61.818 Other pancytopenia; I82.612 Acute embolism and thrombosis of superficial veins of left upper extremity; F05 Delirium due to known physiological condition; F03.91 Unspecified dementia, unspecified severity, with behavioral disturbance; Z68.1 Body mass index [BMI] 19.9 or less, adult; F41.1 Generalized anxiety disorder; E87.6 Hypokalemia; D53.9 Nutritional anemia, unspecified; D70.9 Neutropenia, unspecified; E78.5 Hyperlipidemia, unspecified; I25.10 Atherosclerotic heart disease of native coronary artery without angina pectoris; M89.9 Disorder of bone, unspecified; D75.89 Other specified diseases of blood and blood-forming organs; Z85.3 Personal history of malignant neoplasm of breast; Z85.038 Personal history of other malignant neoplasm of large intestine; Z87.891 Personal history of nicotine dependence; Z90.12 Acquired absence of left breast and nipple; R16.2 Hepatomegaly with splenomegaly, not elsewhere classified; M06.9 Rheumatoid arthritis, unspecified; R53.1 Weakness; R63.4 Abnormal weight loss; D46.9 Myelodysplastic syndrome, unspecified; K76.89 Other specified diseases of liver
CPT/HCPCS: 36415; 70030-TC; 70450; 71045; 71260; 78306; 82105; 82378; 82784; 83550; 83615; 83735; 84100; 84155; 84165; 84443; 85025; 85610; 85651; 85730; 86038; 86140; 86300; 86301; 86334; 86430; 86706; 86803; 87040; 87340; 93005; A4663; A9503; G0378; G0480; J0456; J0692; J0696; J1447; J7050; J7060; Q9967; U0003

== ENCOUNTER 2020-10-14 17:00 | Inpatient (IN) | payer MEDICARE ==
[~2020-10-14] VITALS: Ht 162.6 cm; Wt 43.5 kg
[~2020-10-14 17:00] MED LIST: ASPI81TA31 PO; BETA1TAB19 PO; BIOT5000 PO; CHOL10005 PO; CYAN200017 PO; FURO-152 PO; L. R1CAP4 PO; MAG355OR18 PO; OMEP40CA13 PO; PRAV20TA4 PO; PREG50CA PO; SIME125C PO; SLOW-MAG; SOLI5TAB2 PO; TRAV5DRO LEFTEYE; TURM1CAP2 PO; TYLENOL PM; [UNRECOGNIZED DRUG - OTHER]
[2020-10-14] MEDS ORDERED: MAGN400O6 PO (17:22)
[2020-10-14] MEDS ORDERED: BISA10SU12 RC (17:22)
[2020-10-14] MEDS ORDERED: TEMA7.5C PO (17:22)
[2020-10-14] MEDS ORDERED: SERT50TA12 PO (17:22)
[2020-10-14] MEDS ORDERED: LORA0.5T48 PO (17:22)
[2020-10-14] MEDS ORDERED: MIRT15TA7 PO (17:22)
[2020-10-14] MEDS ORDERED: Lactose-Free Food PO (17:22)
[2020-10-14] MEDS ORDERED: MAG30ORA PO (17:22)
[2020-10-14] MEDS ORDERED: Benzocaine/Menth/Cetylpyrd Cl MM (17:22)
[2020-10-14] MEDS ORDERED: ACET325T53 PO (17:22)
[2020-10-14] MEDS ORDERED: PANT40TA2 PO (17:22)
[2020-10-15] MEDS ORDERED: Z GUARD REMEDY PASTE 57 GM TUBE TOP PRN (02:15)
[2020-10-15 04:53] VITALS: BP 137/74
[2020-10-15 08:30] VITALS: BP 127/64
[2020-10-15] MEDS ORDERED: ACETAMINOPHEN 325 MG TABLET PO PRN (13:30)
[2020-10-15] MEDS ORDERED: LORAZEPAM 0.5 MG TABLET PO PRN (13:30)
[2020-10-15] MEDS ORDERED: BISACODYL 10 MG SUPP.RECT RC PRN (13:30)
[2020-10-15] MEDS ORDERED: TEMAZEPAM 7.5 MG CAPSULE PO PRN (13:30)
[2020-10-15] MEDS ORDERED: MAG HYDROX/AL HYDROX/SIMETH 30 ML LIQUID UDC PO PRN (13:30)
[2020-10-15] MEDS ORDERED: MAGNESIUM HYDROXIDE 30 ML LIQUID UDC PO PRN (13:30)
[2020-10-15] MEDS ORDERED: BETA CAROTENE/VIT C & E/MIN TABLET PO SCH (17:00)
[2020-10-15] MEDS ORDERED: ENSURE ENLIVE (VAN) 240 ML LIQUID PO SCH (17:00)
[2020-10-15] MEDS ORDERED: MIRTAZAPINE 15 MG TABLET PO SCH (21:00)
[2020-10-15] MEDS ORDERED: TRAVOPROST 0.004% OPHT DROP 2.5 ML BOTTLE LEFTEYE SCH ×2 (21:00)
[2020-10-15] MEDS ORDERED: PREGABALIN 50 MG CAPSULE PO SCH (21:00)
[2020-10-16] MEDS ORDERED: PANTOPRAZOLE SODIUM 40 MG TABLET.DR PO SCH (07:00)
[2020-10-16] MEDS ORDERED: FUROSEMIDE 20 MG TABLET PO SCH (09:00)
[2020-10-16] MEDS ORDERED: SOLIFENACIN SUCCINATE 5 MG TABEC PO SCH (09:00)
[2020-10-16] MEDS ORDERED: SERTRALINE HCL 50 MG TABLET PO SCH (13:00)
[2020-10-18] MEDS ORDERED: CEFE2FRO IV (15:18)
[2020-10-18] MEDS ORDERED: GABA-532 PO (15:22)
[2020-10-18] MEDS ORDERED: MEMA10TA PO (15:22)
[2020-10-18] MEDS ORDERED: QUET50TA PO (15:22)
== END 2020-10-15 13:35 | disposition short-term general hospital (02) | DRG 195 ==
PROVIDERS: ADMIT Internal Medicine; ATTEND Physical Medicine & Rehabilitation Pain Medicine
DX: J18.9 Pneumonia, unspecified organism (principal)